=== PATIENT | female | born 1965 | race African-American/Black ===

== ENCOUNTER → 2017-09-17 | Outpatient (CLI) | payer BC ==
[2017-09-17 13:01] LABS: ADD MAN DIFF? NO
[2017-09-17 13:06] LABS: BASO # 0.1 x10^3/uL (0.0-0.2); BASO % 1 % (0-3); EOS # 0.1 x10^3/uL (0.0-0.7); EOS % 2 % (0-3); LYMPH # 1.7 x10^3/uL (1.0-4.8); LYMPH % 33 % (24-48); MEAN CORPUSCULAR HEMOGLOBIN 27 pg (25-35); MEAN CORPUSCULAR HGB CONC 33 g/dL (31-37); MEAN CORPUSCULAR VOLUME 81 fL (79-100); MONO # 0.3 x10^3/uL (0.0-1.1); MONO % 6 % (0-9); NEUT # 3.1 x10^3uL (1.8-7.7); NEUT % 58 % (31-73); PLATELET COUNT 345 x10^3/uL (140-400); RED BLOOD COUNT 4.84 x10^6/uL (3.50-5.40); RED CELL DISTRIBUTION WIDTH 13.8 % (11.5-14.5); WHITE BLOOD COUNT 5.3 x10^3/uL (4.0-11.0)
[2017-09-17 13:19] LABS: ALBUMIN 3.2 g/dL (3.4-5.0); ALBUMIN/GLOBULIN RATIO 0.8 (1.0-1.7); ALK PHOS 98 U/L (46-116); ALT (SGPT) 20 U/L (14-59); ANION GAP 10 (6-14); AST (SGOT) 29 U/L (15-37); BLOOD UREA NITROGEN 27 mg/dL (7-20); BUN/CREATININE RATIO 30 (6-20); CARBON DIOXIDE 27 mmol/L (21-32); CHLORIDE 103 mmol/L (98-107); CREATININE 0.9 mg/dL (0.6-1.0); GFR 80.5; GLUCOSE 188 mg/dL (70-99); POTASSIUM 3.7 mmol/L (3.5-5.1); SODIUM 140 mmol/L (136-145); TOTAL BILIRUBIN 0.4 mg/dL (0.2-1.0); TOTAL PROTEIN 7.4 g/dL (6.4-8.2)
[2017-09-17 21:10] LABS: MRSA BY PCR Negative (Negative)
[2017-09-18 14:17] LABS: HEMOGLOBIN A1C 6.2 % (4.8-5.6)
== END | disposition home or self-care (01) ==
LOC: SURGPAT 11:57
DX: Z01.818 Encounter for other preprocedural examination (principal); M51.16 Intervertebral disc disorders with radiculopathy, lumbar region; E11.9 Type 2 diabetes mellitus without complications
CPT/HCPCS: 36415; 80053; 83036; 85025; 87641

== ENCOUNTER 2017-09-24 08:30 | Observation (INO) | payer BC ==
[2017-09-24] MEDS: BUPIVAC MPF-EPI 0.5%-1:200000 30 ML VIAL. INJ (08:00)
[~2017-09-24 08:30] MED LIST: LIDOCAINE 1% PF 2 ML VIAL. ID; PROCHLORPERAZINE 10 MG/2 ML VIAL. IV; fentaNYL PF VIAL 100 MCG/2 ML VIAL IV
[2017-09-24 08:52] LABS: POC GLUCOSE 84 mg/dL (70-99)
[2017-09-24] MEDS: IV RINGERS,LACTATED 1000ML 1,000 ML IV (09:16)
[2017-09-24] MEDS ORDERED: MIDAZOLAM HCL/PF 2 MG/2 ML VIAL. (10:08)
[2017-09-24] MEDS ORDERED: REMIFENTANIL 2 MG VIAL. IV (10:09)
[2017-09-24] MEDS ORDERED: ROCURONIUM 50 MG/5 ML VIAL. (10:09)
[2017-09-24] MEDS ORDERED: fentaNYL PF VIAL 250 MCG/5 ML VIAL (10:09)
[2017-09-24] MEDS ORDERED: DESFLURANE > 120 MINUTES IH (10:10)
[2017-09-24] MEDS ORDERED: PROPOFOL 20 ML IV (10:10)
[2017-09-24] MEDS ORDERED: DEXAMETHASONE SOD PHOS 20 MG/5 ML VIAL. (10:10)
[2017-09-24] MEDS ORDERED: LIDOCAINE 2% PF Vial for OR 5 ML VIAL. (10:10)
[2017-09-24] MEDS ORDERED: PROPOFOL 50 ML IV (10:10)
[2017-09-24] MEDS ORDERED: ONDANSETRON PF 4 MG/2 ML VIAL. (10:10)
[2017-09-24] MEDS ORDERED: MINERAL OIL/PETROLATUM,WHITE OPHTH OINT 3.5GM TUBE. (10:16)
[2017-09-24] MEDS ORDERED: 0.9 % SODIUM CHLORIDE 50 ML VIAL. IJ (10:17)
[2017-09-24] MEDS: VANCOMYCIN 1GM IVPB FOR OMNI 250 ML IV ×2 (12:25→16:57)
[2017-09-24] MEDS: BACITRACIN 50,000 UNIT in IV NORMAL SALINE 1000ML BAG 1,000 ML IRR (12:57)
[2017-09-24] MEDS: GELATIN SPONGE SIZE 100. (12:57)
[2017-09-24] MEDS: KETOROLAC 60 MG/2 ML INJ FOR OR. (12:57)
[2017-09-24] MEDS: THROMBIN TOPICAL 20,000 UNIT SPRAY.SYRN KIT TP (12:57)
[2017-09-24] MEDS: BUPIVAC MPF-EPI 0.5%-1:200000 30 ML VIAL. (12:57)
[2017-09-24] MEDS ORDERED: PHENYLEPHRINE 10 MG/ML VIAL. ×2 (13:02)
[2017-09-24] MEDS ORDERED: GLYCOPYRROLATE 1 MG/5 ML VIAL. (14:19)
[2017-09-24] MEDS ORDERED: NEOSTIGMINE 10 MG/10 ML VIAL. (14:19)
[2017-09-24] MEDS ORDERED: CALCIUM CARBONATE 500 MG TAB.CHEW PO (15:00)
[2017-09-24] MEDS ORDERED: 0.9 % SODIUM CHLORIDE 10 ML DISP.SYRIN. IV (15:00)
[2017-09-24] MEDS ORDERED: ACETAMINOPHEN 500 MG TABLET PO (15:00)
[2017-09-24] MEDS ORDERED: MAG HYDROX/ALUMINUM HYD/SIMETH 30 ML ORAL.SUSP PO (15:00)
[2017-09-24] MEDS ORDERED: NON FORMULARY ITEM (Albuterol Sulfate (Proair Hfa Inhaler) 1 PUFF) INH (15:00)
[2017-09-24] MEDS ORDERED: fentaNYL PF VIAL 100 MCG/2 ML VIAL IV (15:00)
[2017-09-24] MEDS ORDERED: diphenhydrAMINE 50 MG/ML VIAL IV (15:00)
[2017-09-24] MEDS ORDERED: diphenhydrAMINE HCL 25 MG CAPSULE PO (15:00)
[2017-09-24] MEDS ORDERED: MAGNESIUM HYDROXIDE 2,400 MG/30 ML ORAL.SUSP. PO (15:00)
[2017-09-24] MEDS ORDERED: ONDANSETRON PF 4 MG/2 ML VIAL. IV (15:00)
[2017-09-24] MEDS: fentaNYL PF VIAL 100 MCG/2 ML VIAL IV ×5 (15:04→16:51)
[2017-09-24 16:05] LABS: POC GLUCOSE 82 mg/dL (70-99)
[2017-09-24] MEDS: POTASSIUM CL 20MEQ-0.45% NACL 1,000 ML IV (16:50)
[2017-09-24] MEDS: ONDANSETRON PF 4 MG/2 ML VIAL. IV (16:56)
[2017-09-24] MEDS: ALBUTEROL SULFATE 2.5 MG/3 ML NEBU. NEB (19:11)
[2017-09-24 20:38] LABS: POC GLUCOSE 166 mg/dL (70-99)
[2017-09-24] MEDS: TRIAMCINOLONE ACETONIDE 0.1% TOPICAL CREAM 15GM TUBE. TP (21:02)
[2017-09-24] MEDS: metFORMIN 500 MG TABLET PO (21:02)
[2017-09-24] MEDS: DOCUSATE SODIUM 100 MG CAPSULE. PO (21:02)
[2017-09-24] MEDS: METHOCARBAMOL 750 MG TABLET PO (21:02)
[2017-09-24] MEDS: traMADol 50 MG TABLET PO (22:41)
[2017-09-25] MEDS: fentaNYL PF VIAL 100 MCG/2 ML VIAL IV ×2 (02:21)
[2017-09-25] MEDS: POTASSIUM CL 20MEQ-0.45% NACL 1,000 ML IV (05:20)
[2017-09-25 06:24] LABS: POC GLUCOSE 112 mg/dL (70-99)
[2017-09-25] MEDS: DOCUSATE SODIUM 100 MG CAPSULE. PO (07:41)
[2017-09-25] MEDS: metFORMIN 500 MG TABLET PO (07:41)
[2017-09-25] MEDS: traMADol 50 MG TABLET PO ×2 (07:41→11:48)
[2017-09-25] MEDS: CHOLECALCIFEROL (VITAMIN D3) 1,000 UNIT TABLET PO (07:41)
[2017-09-25] MEDS: METHOCARBAMOL 750 MG TABLET PO (07:41)
[2017-09-25] MEDS: ACETAMINOPHEN 325 MG TABLET. PO ×2 (07:42→11:49)
[2017-09-25] MEDS: MELOXICAM 7.5 MG TABLET PO (07:42)
[2017-09-25] MEDS: LISINOPRIL 10 MG TABLET PO (09:00)
[2017-09-25] MEDS: TRIAMCINOLONE ACETONIDE 0.1% TOPICAL CREAM 15GM TUBE. TP (09:00)
[2017-09-25] MEDS ORDERED: traMADol 50 MG TABLET PO (10:15)
== END 2017-09-25 12:15 | disposition home or self-care (01) ==
LOC: SURG 08:30 → 4 SOUTHEST 15:30
PROVIDERS: Neurological Surgery
DX: M51.26 Other intervertebral disc displacement, lumbar region (principal); M54.17 Radiculopathy, lumbosacral region; M19.90 Unspecified osteoarthritis, unspecified site; J45.909 Unspecified asthma, uncomplicated; I10 Essential (primary) hypertension; E11.9 Type 2 diabetes mellitus without complications; G47.30 Sleep apnea, unspecified; Z82.0 Family history of epilepsy and other diseases of the nervous system; Z82.49 Family history of ischemic heart disease and other diseases of the circulatory system; Z83.3 Family history of diabetes mellitus; Z90.710 Acquired absence of both cervix and uterus
CPT/HCPCS: 63047; 76000; 82962; 88304; 93005; 94640; 96374; 96375; 96376; 97116-GP; 97162-GP; 97530-GP; G0378; G0379; G8978-CI-GP; G8979-CI-GP; G8980-CI-GP; J1100; J1885; J2250; J2405; J2704; J2710; J3010; J3370; J3490; J7030; J7120; J7613

== ENCOUNTER 2017-10-09 06:29 | Inpatient (IN) | payer BC ==
[2017-10-09 07:15] LABS: ADD MAN DIFF? NO
[2017-10-09 07:29] LABS: ANION GAP 9 (6-14); BLOOD UREA NITROGEN 18 mg/dL (7-20); CALCIUM 8.7 mg/dL (8.5-10.1); CARBON DIOXIDE 25 mmol/L (21-32); CHLORIDE 107 mmol/L (98-107); CREATININE 0.7 mg/dL (0.6-1.0); GFR 107.6; GLUCOSE 108 mg/dL (70-99); POTASSIUM 4.8 mmol/L (3.5-5.1); SODIUM 141 mmol/L (136-145)
[2017-10-09 07:41] LABS: TROPONINI < 0.017 ng/mL (0.000-0.055)
[2017-10-09 07:47] LABS: BASO % 1 % (0-3); EOS # 0.1 x10^3/uL (0.0-0.7); EOS % 3 % (0-3); HEMATOCRIT 40.3 % (36.0-47.0); HEMOGLOBIN 12.8 g/dL (12.0-15.5); LYMPH # 1.5 x10^3/uL (1.0-4.8); LYMPH % 31 % (24-48); MEAN CORPUSCULAR HEMOGLOBIN 26 pg (25-35); MEAN CORPUSCULAR HGB CONC 32 g/dL (31-37); MEAN CORPUSCULAR VOLUME 81 fL (79-100); MONO # 0.4 x10^3/uL (0.0-1.1); MONO % 8 % (0-9); NEUT # 2.7 x10^3uL (1.8-7.7); NEUT % 57 % (31-73); PLATELET COUNT 272 x10^3/uL (140-400); RED BLOOD COUNT 4.97 x10^6/uL (3.50-5.40); WHITE BLOOD COUNT 4.8 x10^3/uL (4.0-11.0)
[2017-10-09] MEDS: ASPIRIN CHEWABLE 81 MG TABLET. PO (07:58)
[2017-10-09] MEDS ORDERED: ONDANSETRON PF 4 MG/2 ML VIAL. IV (08:00)
[2017-10-09] MEDS ORDERED: NITROGLYCERIN SUBLINGUAL 0.4 MG BOTTLE OF 25. SL (08:00)
[2017-10-09] MEDS ORDERED: fentaNYL PF VIAL 100 MCG/2 ML VIAL IV (08:00)
[2017-10-09] MEDS: NITROGLYCERIN SUBLINGUAL 0.4 MG BOTTLE OF 25. SL ×3 (08:01→08:31)
[2017-10-09] MEDS: LISINOPRIL 10 MG TABLET PO (10:17)
[2017-10-09] MEDS: CHOLECALCIFEROL (VITAMIN D3) 1,000 UNIT TABLET PO (10:17)
[2017-10-09 10:55] LABS: CHOLESTEROL 262 mg/dL (0-200); HDLC 70 mg/dL (40-60); LDLC 175 mg/dL (0-100); NON-HDL CHOLESTEROL 192 mg/dL (0-129); TRIGLYCERIDES 87 mg/dL (0-150); VLDLC 17 mg/dL (0-40)
[2017-10-09 10:57] LABS: CHOLESTEROL/HDL RATIO 3.7
[2017-10-09 11:15] LABS: TROPONINI < 0.017 ng/mL (0.000-0.055)
[2017-10-09 11:36] LABS: POC GLUCOSE 83 mg/dL (70-99)
[2017-10-09] MEDS: ASPIRIN ENTERIC COATED 81 MG TABLET.DR. PO (12:02)
[2017-10-09 14:14] LABS: TROPONINI < 0.017 ng/mL (0.000-0.055)
[2017-10-09] MEDS: REGADENOSON 0.4 MG/5 ML DISP.SYRIN. IV (14:32)
[2017-10-09 16:44] LABS: POC GLUCOSE 169 mg/dL (70-99)
[2017-10-09] MEDS ORDERED: metFORMIN 500 MG TABLET PO (17:00)
[2017-10-09] MEDS: METHOCARBAMOL 750 MG TABLET PO ×2 (17:27→21:00)
[2017-10-09] MEDS: ACETAMINOPHEN 500 MG TABLET PO (18:40)
[2017-10-09] MEDS: ATORVASTATIN CALCIUM 40 MG TABLET. PO (21:00)
[2017-10-09] MEDS ORDERED: ATORVASTATIN CALCIUM 20 MG TABLET PO (21:00)
[2017-10-10 07:48] LABS: POC GLUCOSE 103 mg/dL (70-99)
[2017-10-10] MEDS: PANTOPRAZOLE 40 MG TABLET.DR. PO (08:45)
[2017-10-10] MEDS: POLYETHYLENE GLYCOL 3350 17 GM PACKET. PO (08:46)
[2017-10-10] MEDS: ESTRADIOL 1 MG TABLET. PO (08:46)
[2017-10-10] MEDS: ASPIRIN ENTERIC COATED 81 MG TABLET.DR. PO (08:46)
[2017-10-10] MEDS: LISINOPRIL 20 MG TABLET PO (08:47)
[2017-10-10] MEDS: METHOCARBAMOL 750 MG TABLET PO (08:48)
[2017-10-10] MEDS: CHOLECALCIFEROL (VITAMIN D3) 1,000 UNIT TABLET PO (08:48)
[2017-10-10] MEDS ORDERED: MELOXICAM 7.5 MG TABLET PO (09:00)
[2017-10-10] MEDS: MELOXICAM 7.5 MG TABLET PO (11:00)
[2017-10-10 11:06] LABS: POC GLUCOSE 119 mg/dL (70-99)
== END 2017-10-10 11:54 | disposition home or self-care (01) | DRG 74 ==
LOC: ER 06:29 → 5 NORTH 08:02
DX: M54.12 Radiculopathy, cervical region (principal); K31.84 Gastroparesis; E11.43 Type 2 diabetes mellitus with diabetic autonomic (poly)neuropathy; R07.89 Other chest pain; J45.909 Unspecified asthma, uncomplicated; E78.5 Hyperlipidemia, unspecified; I10 Essential (primary) hypertension; M19.90 Unspecified osteoarthritis, unspecified site; K21.9 Gastro-esophageal reflux disease without esophagitis; G89.29 Other chronic pain; Z88.5 Allergy status to narcotic agent; Z98.1 Arthrodesis status; Z88.0 Allergy status to penicillin; Z88.6 Allergy status to analgesic agent; Z91.041 Radiographic dye allergy status; Z90.710 Acquired absence of both cervix and uterus; Z82.49 Family history of ischemic heart disease and other diseases of the circulatory system
CPT/HCPCS: 36415; 71045; 72125; 73030; 78452; 80048; 80061; 82962; 84484; 85025; 93005; 93017; 93306; 96374; 96375; 96376; 99285; 99285-25; A9500; J2785

== ENCOUNTER → 2017-10-15 | Outpatient (CLI) | payer BC ==
[~2017-10-15] MED LIST changes: +IOHEXOL 180 MG/ML 10 ML VIAL.; -LIDOCAINE 1% PF 2 ML VIAL. ID; -PROCHLORPERAZINE 10 MG/2 ML VIAL. IV; -fentaNYL PF VIAL 100 MCG/2 ML VIAL IV; +methylPREDNISolone ACETATE 40 MG/ML VIAL.
== END ==
LOC: PNCL 13:03
DX: M50.10 Cervical disc disorder with radiculopathy, unspecified cervical region (principal); E11.9 Type 2 diabetes mellitus without complications; I10 Essential (primary) hypertension; G47.30 Sleep apnea, unspecified; M19.90 Unspecified osteoarthritis, unspecified site; Z90.710 Acquired absence of both cervix and uterus; Z88.0 Allergy status to penicillin; Z88.5 Allergy status to narcotic agent; Z88.8 Allergy status to other drugs, medicaments and biological substances; G40.909 Epilepsy, unspecified, not intractable, without status epilepticus; E66.9 Obesity, unspecified; K21.9 Gastro-esophageal reflux disease without esophagitis; D25.9 Leiomyoma of uterus, unspecified; Z90.721 Acquired absence of ovaries, unilateral; F32.9 Major depressive disorder, single episode, unspecified; Z79.84 Long term (current) use of oral hypoglycemic drugs
CPT/HCPCS: 62321; J1030; Q9965

== ENCOUNTER → 2017-10-24 | Outpatient (CLI) | payer BC | END | disposition home or self-care (01) | LOC: KCIC MRI 12:44 | DX: M50.122 Cervical disc disorder at C5-C6 level with radiculopathy (principal); M48.02 Spinal stenosis, cervical region | CPT/HCPCS: 72141 ==

== ENCOUNTER → 2017-11-05 | Outpatient (CLI) | payer BC ==
[2017-11-05 14:41] LABS: ADD MAN DIFF? NO
[2017-11-05 14:43] LABS: BASO % 1 % (0-3); EOS # 0.1 x10^3/uL (0.0-0.7); EOS % 2 % (0-3); HEMATOCRIT 41.2 % (36.0-47.0); HEMOGLOBIN 13.2 g/dL (12.0-15.5); LYMPH # 1.9 x10^3/uL (1.0-4.8); LYMPH % 52 % (24-48); MEAN CORPUSCULAR HEMOGLOBIN 26 pg (25-35); MEAN CORPUSCULAR HGB CONC 32 g/dL (31-37); MEAN CORPUSCULAR VOLUME 82 fL (79-100); MONO # 0.3 x10^3/uL (0.0-1.1); MONO % 10 % (0-9); NEUT # 1.3 x10^3uL (1.8-7.7); NEUT % 36 % (31-73); PLATELET COUNT 287 x10^3/uL (140-400); RED BLOOD COUNT 5.06 x10^6/uL (3.50-5.40); RED CELL DISTRIBUTION WIDTH 14.4 % (11.5-14.5); WHITE BLOOD COUNT 3.6 x10^3/uL (4.0-11.0)
[2017-11-05 15:28] LABS: ALBUMIN 3.1 g/dL (3.4-5.0); ALBUMIN/GLOBULIN RATIO 0.8 (1.0-1.7); ALK PHOS 87 U/L (46-116); ALT (SGPT) 27 U/L (14-59); ANION GAP 10 (6-14); AST (SGOT) 20 U/L (15-37); BLOOD UREA NITROGEN 18 mg/dL (7-20); BUN/CREATININE RATIO 20 (6-20); CALCIUM 8.4 mg/dL (8.5-10.1); CARBON DIOXIDE 25 mmol/L (21-32); CHLORIDE 104 mmol/L (98-107); CREATININE 0.9 mg/dL (0.6-1.0); GFR 80.5; GLUCOSE 99 mg/dL (70-99); POTASSIUM 4.6 mmol/L (3.5-5.1); SODIUM 139 mmol/L (136-145); TOTAL BILIRUBIN 0.3 mg/dL (0.2-1.0); TOTAL PROTEIN 7.1 g/dL (6.4-8.2)
[2017-11-06 22:17] LABS: MRSA BY PCR Negative (Negative)
== END | disposition home or self-care (01) ==
LOC: SURGPAT 13:22
DX: Z01.818 Encounter for other preprocedural examination (principal); M50.123 Cervical disc disorder at C6-C7 level with radiculopathy
CPT/HCPCS: 36415; 80053; 85025; 87641

== ENCOUNTER 2017-11-12 06:57 | Observation (INO) | payer BC ==
[2017-11-12] MEDS ORDERED: ONDANSETRON PF 4 MG/2 ML VIAL. IV ×2 (07:00→10:45)
[2017-11-12] MEDS ORDERED: fentaNYL PF VIAL 100 MCG/2 ML VIAL IV ×4 (07:00→10:45)
[2017-11-12] MEDS ORDERED: LIDOCAINE 1% PF 2 ML VIAL. ID (07:00)
[2017-11-12 07:34] LABS: POC GLUCOSE 91 mg/dL (70-99)
[2017-11-12] MEDS: IV RINGERS,LACTATED 1000ML 1,000 ML IV (07:34)
[2017-11-12] MEDS ORDERED: MIDAZOLAM HCL/PF 2 MG/2 ML VIAL. (08:01)
[2017-11-12] MEDS ORDERED: PROPOFOL 50 ML IV ×2 (08:01→09:36)
[2017-11-12] MEDS ORDERED: DEXAMETHASONE SOD PHOS 20 MG/5 ML VIAL. (08:01)
[2017-11-12] MEDS ORDERED: REMIFENTANIL 2 MG VIAL. IV (08:01)
[2017-11-12] MEDS ORDERED: LIDOCAINE 2% PF Vial for OR 5 ML VIAL. (08:01)
[2017-11-12] MEDS ORDERED: ONDANSETRON PF 4 MG/2 ML VIAL. (08:01)
[2017-11-12] MEDS ORDERED: ROCURONIUM 50 MG/5 ML VIAL. (08:01)
[2017-11-12] MEDS ORDERED: MINERAL OIL/PETROLATUM,WHITE OPHTH OINT 3.5GM TUBE. (08:01)
[2017-11-12] MEDS ORDERED: PROPOFOL 20 ML IV (08:01)
[2017-11-12] MEDS ORDERED: PHENYLEPHRINE 10 MG/ML VIAL. (08:02)
[2017-11-12] MEDS ORDERED: DESFLURANE > 120 MINUTES IH (08:31)
[2017-11-12] MEDS ORDERED: SUCCINYLCHOLINE 200 MG/10 ML VIAL. (08:34)
[2017-11-12] MEDS: VANCOMYCIN 1GM IVPB FOR OMNI 250 ML IV (08:53)
[2017-11-12] MEDS ORDERED: GLYCOPYRROLATE 1 MG/5 ML VIAL. (09:21)
[2017-11-12] MEDS ORDERED: ePHEDrine PF IN SALINE 50 MG/5 ML DISP.SYRIN IV (09:26)
[2017-11-12] MEDS ORDERED: VASOPRESSIN 20 UNIT/ML VIAL. (09:30)
[2017-11-12] MEDS: BACITRACIN 50,000 UNIT in IV NORMAL SALINE 1000ML BAG 1,000 ML IRR (09:43)
[2017-11-12] MEDS: GELATIN SPONGE SIZE 100. (09:43)
[2017-11-12] MEDS: THROMBIN TOPICAL 20,000 UNIT SPRAY.SYRN KIT TP (09:43)
[2017-11-12] MEDS: BUPIVAC MPF-EPI 0.5%-1:200000 30 ML VIAL. INJ (09:43)
[2017-11-12] MEDS ORDERED: MAG HYDROX/ALUMINUM HYD/SIMETH 30 ML ORAL.SUSP PO (10:45)
[2017-11-12] MEDS ORDERED: CALCIUM CARBONATE 500 MG TAB.CHEW PO (10:45)
[2017-11-12] MEDS ORDERED: 0.9 % SODIUM CHLORIDE 10 ML DISP.SYRIN. IV (10:45)
[2017-11-12] MEDS ORDERED: diphenhydrAMINE 50 MG/ML VIAL IV (10:45)
[2017-11-12] MEDS ORDERED: ACETAMINOPHEN 325 MG TABLET. PO (10:45)
[2017-11-12] MEDS ORDERED: ZOLPIDEM 5 MG TABLET. PO (10:45)
[2017-11-12] MEDS ORDERED: diphenhydrAMINE HCL 25 MG CAPSULE PO (10:45)
[2017-11-12] MEDS ORDERED: DEXTROSE 50% 25 GM / 50ML DISP.SYRIN. IV (10:45)
[2017-11-12] MEDS ORDERED: MORPHINE SULFATE 4 MG/ML DISP.SYRIN. ×2 (11:42→12:36)
[2017-11-12] MEDS ORDERED: PROCHLORPERAZINE 10 MG/2 ML VIAL. (11:42)
[2017-11-12] MEDS: PROCHLORPERAZINE 10 MG/2 ML VIAL. IV (12:19)
[2017-11-12] MEDS: MORPHINE SULFATE 4 MG/ML DISP.SYRIN. IV ×5 (12:20→13:11)
[2017-11-12 12:38] LABS: POC GLUCOSE 106 mg/dL (70-99)
[2017-11-12] MEDS: DOCUSATE SODIUM 100 MG CAPSULE. PO ×2 (14:57→21:21)
[2017-11-12] MEDS: oxyCODONE/APAP 5/325 1 TAB TABLET PO ×2 (14:57→18:30)
[2017-11-12] MEDS: METHOCARBAMOL 750 MG TABLET PO ×2 (14:57→21:21)
[2017-11-12] MEDS: POTASSIUM CL 20MEQ-0.45% NACL 1,000 ML IV ×2 (14:58→23:54)
[2017-11-12] MEDS: BUDESONIDE 0.5 MG/2 ML NEBU. NEB ×2 (16:34→21:06)
[2017-11-12] MEDS ORDERED: MORPHINE SULFATE 4 MG/ML DISP.SYRIN. IV ×2 (17:30)
[2017-11-12 17:35] LABS: POC GLUCOSE 151 mg/dL (70-99)
[2017-11-12] MEDS: VANCOMYCIN 1 GM in IV DEXTROSE 5% 250 ML IV (21:21)
[2017-11-12] MEDS: ATORVASTATIN CALCIUM 40 MG TABLET. PO (21:21)
[2017-11-13] MEDS: oxyCODONE/APAP 5/325 1 TAB TABLET PO ×2 (02:08→09:04)
[2017-11-13] MEDS: ALBUTEROL SULFATE 2.5 MG/3 ML NEBU. NEB (07:49)
[2017-11-13] MEDS: BUDESONIDE 0.5 MG/2 ML NEBU. NEB (07:49)
[2017-11-13] MEDS: metFORMIN 500 MG TABLET PO (09:04)
[2017-11-13] MEDS: DOCUSATE SODIUM 100 MG CAPSULE. PO (09:04)
[2017-11-13] MEDS: LISINOPRIL 20 MG TABLET PO (09:05)
[2017-11-13] MEDS: ESTRADIOL 1 MG TABLET. PO (09:05)
[2017-11-13] MEDS: METHOCARBAMOL 750 MG TABLET PO (09:07)
== END 2017-11-13 13:45 | disposition home or self-care (01) ==
LOC: SURG 06:57 → 4 NORTH 10:34
PROVIDERS: Neurological Surgery
DX: M48.02 Spinal stenosis, cervical region (principal); M54.12 Radiculopathy, cervical region; M19.90 Unspecified osteoarthritis, unspecified site; J45.909 Unspecified asthma, uncomplicated; G43.909 Migraine, unspecified, not intractable, without status migrainosus; I10 Essential (primary) hypertension; E11.9 Type 2 diabetes mellitus without complications; Z82.0 Family history of epilepsy and other diseases of the nervous system; Z82.49 Family history of ischemic heart disease and other diseases of the circulatory system; Z83.3 Family history of diabetes mellitus
CPT/HCPCS: 20931; 76000; 82962; 94640; 96365; 97161-GP; A7015; C1713; G0378; G0379; G8978-CH-GP; G8979-CH-GP; G8980-CH-GP; J0330; J0780; J1100; J2250; J2270; J2405; J2704; J3370; J3490; J7030; J7120; J7613; J7626

== ENCOUNTER → 2018-02-01 | Day surgery (SDC) | payer OTHER, BC ==
[~2018-02-01] MED LIST changes: -IOHEXOL 180 MG/ML 10 ML VIAL.; +LIDOCAINE 2% PF Vial for OR 5 ML VIAL.; +PROPOFOL 20 ML IV; -methylPREDNISolone ACETATE 40 MG/ML VIAL.
[2018-02-01] MEDS: IV RINGERS,LACTATED 1000ML 1,000 ML IV (09:56)
== END ==
LOC: ENDOS 08:55
DX: R19.4 Change in bowel habit (principal); K57.30 Diverticulosis of large intestine without perforation or abscess without bleeding; K64.0 First degree hemorrhoids; I10 Essential (primary) hypertension; E78.00 Pure hypercholesterolemia, unspecified; E11.9 Type 2 diabetes mellitus without complications; J45.909 Unspecified asthma, uncomplicated; M19.90 Unspecified osteoarthritis, unspecified site; F32.9 Major depressive disorder, single episode, unspecified; K21.9 Gastro-esophageal reflux disease without esophagitis; M54.12 Radiculopathy, cervical region; M48.02 Spinal stenosis, cervical region; Z88.0 Allergy status to penicillin; Z88.8 Allergy status to other drugs, medicaments and biological substances; Z83.3 Family history of diabetes mellitus; Z82.49 Family history of ischemic heart disease and other diseases of the circulatory system; Z79.899 Other long term (current) drug therapy; Z98.890 Other specified postprocedural states; Z90.710 Acquired absence of both cervix and uterus; Z90.722 Acquired absence of ovaries, bilateral
CPT/HCPCS: 45378; J2001; J2704

== ENCOUNTER 2018-04-19 14:10 | Emergency (ER) | payer OTHER ==
[~2018-04-19] VITALS: Ht 152.4 cm; Wt 97.5 kg
[~2018-04-19 14:10] MED LIST changes: +ACET325T9 PO; +ATOR40TA59 PO; +CHOL10003 PO; +DOCU-109 PO; +ESTR0.5T PO; +ESTR1PAT27 TD; -LIDOCAINE 2% PF Vial for OR 5 ML VIAL.; +LISI-130 PO; +LISI10TA2 PO; +MELO15TA23 PO; +METF500T16 PO; +METH-38 PO; +MOME220A5 IH; +OXYC-323 PO; +PROAIR HFA8.5 GM INH; -PROPOFOL 20 ML IV; +TRAM50TA PO; +TRIA80OI TP
[2018-04-19 14:55] VITALS: BP 149/91
--- NOTE | 2018-04-19 15:37 | PHYS DOC ---
Past Medical History Past Medical History: Asthma, Diabetes-Type II, Hypertension Past Surgical History: Hysterectomy, Other Additional Past Surgical Histo: spinal fusion L5, C3-C5 CERVICAL FUSION Alcohol Use: None Drug Use: None Adult General Chief Complaint Chief Complaint: BACK PAIN OR INJURY HPI HPI Patient is a 52 year old female who presents with hx of HTN, DMII, who presents today complaining of 10 out of 10 bilateral low back pain radiating to bilateral lower extremities that is chronic in nature but got worse today while she was sitting in her couch. Patient is also complaining of numbness and tingling to her toes. She states this is not new. She states usually follows up with Dr. Aparicio the neurosurgeon, she states she has oxycodone at home for pain but she is not taking it because she does not like how it makes her feel. Patient denies any trauma. Denies any loss of bowel bladder function. Denies any weakness. Review of Systems Review of Systems Constitutional: Denies fever or chills [] GI: Denies abdominal pain, nausea, vomiting, bloody stools or diarrhea [] : Denies dysuria or hematuria [] Musculoskeletal: Reports bilateral low back pain radiating to bilateral lower extremities. Integument: Denies rash or skin lesions [] Neurologic: Denies headache, focal weakness or sensory changes [] [] All other systems were reviewed and found to be within normal limits, except as documented in this note. Current Medications Current Medications Current Medications Medications (Trade) Dose Ordered Sig/Mayuri Start Time Stop Time Status Last Admin Dose Admin Dexamethasone Sodium Phosphate (Decadron) 10 mg 1X ONCE 04/19/18 15:45 04/19/18 15:46 UNV Allergies Allergies Allergies Coded Allergies Type Severity Reaction Last Updated Verified iodine Allergy Intermediate Swelling, Shell Fish 02/01/18 Yes Penicillins Adverse Reaction Intermediate Vomiting 11/12/17 Yes codeine Adverse Reaction Intermediate vomit 11/13/17 Yes fentanyl Adverse Reaction Intermediate patient get dizzy and nautious 11/12/17 Yes terbinafine Adverse Reaction Intermediate vomit 11/13/17 Yes tramadol Adverse Reaction Intermediate Nausea and Vomiting 11/12/17 Yes Physical Exam Physical Exam Constitutional: Well developed, well nourished, no acute distress, non-toxic appearance. [] Abdomen: Bowel sounds normal, soft, no tenderness, no masses, no pulsatile masses. [] Skin: Warm, dry, no erythema, no rash. [] Back: Old healed surgical incision noted midline lumbar spine, diffuse paraspinal muscle tenderness to the lumbar spine, no obvious Lumbar spine tenderness, no CVA tenderness. [] Extremities: No tenderness, no cyanosis, no clubbing, ROM intact, no edema. [] Neurologic: Alert and oriented X 3, normal motor function, normal sensory function, no focal deficits noted. [] Psychologic: Affect normal, judgement normal, mood normal. [] Current Patient Data Vital Signs Vital Signs Date Time Temp Pulse Resp B/P (MAP) Pulse Ox O2 Delivery O2 Flow Rate FiO2 04/19/18 14:55 98.6 86 18 149/91 (110) 98 Room Air 98.6 EKG EKG [] Radiology/Procedures Radiology/Procedures [] Course & Med Decision Making Course & Med Decision Making Pertinent Labs and Imaging studies reviewed. (See chart for details) This is a 52-year-old female patient with known history of chronic back pain presenting to the ED today with chronic back pain with sciatica. There is nothing acute about her symptoms today no cauda equina syndrome symptoms. Patient is in no distress. Patient was offered pain relief in the ED, patient states she does not want anything that will make her sleepy or drowsy. Offered her Toradol, she states she is allergic to tramadol. Offered her Solu-Medrol which she accepted. She has oxycodone at home and methocarbamol. Instructed to take them as needed for pain. She has an appointment with Dr. Aparicio's on May 14 2018. She was provided return precautions and discharged in stable condition. Dragon Disclaimer Dragon Disclaimer This electronic medical record was generated, in whole or in part, using a voice recognition dictation system. Departure Departure Impression: Primary Impression: Chronic low back pain Disposition: HOME, SELF-CARE Condition: STABLE Referrals: TATIANNA KEE MD (PCP) GISELLA APARICIO MD follow up in 1 week Patient Instructions: Back Pain, Adult, [id number] Additional Instructions: You were evaluated in the emergency room for exacerbation of chronic low back pain. Continue taking your pain medicine at home as previously ordered. Try to ice the affected area. Follow-up with the primary care doctor as well as neurosurgeon on May 14, 2018 as scheduled. Come back to the ED at any point symptoms worsen. Problem Qualifiers Primary Impression: Chronic low back pain Back pain laterality: bilateral Sciatica presence: without sciatica Qualified Codes: M54.5 - Low back pain; G89.29 - Other chronic pain GELACIO MARSH APRN Apr 19, 2018 15:37
[2018-04-19] MEDS ORDERED: DEXAMETHASONE SOD PHOS 20 MG/5 ML VIAL. IM ONE (15:45)
== END 2018-04-19 16:39 | disposition home or self-care (01) ==
LOC: ER 14:10
DX: G89.29 Other chronic pain (principal); M54.5 Low back pain; R20.0 Anesthesia of skin; J45.909 Unspecified asthma, uncomplicated; I10 Essential (primary) hypertension; E11.9 Type 2 diabetes mellitus without complications; Z90.710 Acquired absence of both cervix and uterus; Z98.1 Arthrodesis status; Z88.5 Allergy status to narcotic agent; Z88.0 Allergy status to penicillin; Z88.8 Allergy status to other drugs, medicaments and biological substances; Z88.4 Allergy status to anesthetic agent; Z91.041 Radiographic dye allergy status
CPT/HCPCS: 96372; 99283; J1100

== ENCOUNTER 2020-08-17 14:00 | Emergency (ER) | payer OTHER ==
[~2020-08-17] VITALS: Ht 152.4 cm; Wt 107.0 kg
[~2020-08-17 14:00] MED LIST changes: +ALBU2.5V8 INH; -OXYC-323 PO; +OXYC1TAB15 PO; -PROAIR HFA8.5 GM INH
--- NOTE | 2020-08-17 14:47 | ED.ADGEN ---
Past Medical History Past Medical History: Arthritis, Asthma, Depression, Diabetes-Type II, High Cholesterol, Hypertension, Other Additional Past Medical Histor: PTSD, SHON, DDD, fibromyalgia Past Surgical History: , Hysterectomy, Other Additional Past Surgical Histo: spinal fusion L5, C3-C5 CERVICAL FUSION, bilat carpel tunnel release Smoking Status: Never Smoker Alcohol Use: None Drug Use: None General Adult EDM: Chief Complaint: LOWER EXT PAIN HPI: HPI: Patient is a 54 year old AA female who presents emergency department with complaints of swelling and pain to her right lower leg, and intermittent chest pain and shortness of breath for the last 2 weeks. Patient denies any known injury to her leg. She denies any recent travel or flights. Patient states that she saw her primary care doctor 2 weeks ago but he did not address her cynthia padilla. She currently denies any abdominal pain, nausea, vomiting, diarrhea, cough, sore throat, headache, or dizziness. She complains that her right lower leg feels hot to touch and appears red in color. She denies any drainage or bleeding from the site. She describes the pain as a burning sensation she currently rates the pain a 10 out of 10 on the pain scale. She denies any alleviating factors, pain is worse with palpation and movement. Review of Systems: Review of Systems: Complete ROS is negative unless otherwise noted in HPI. Allergies: Allergies: Allergies Coded Allergies Type Severity Reaction Last Updated Verified shellfish derived Allergy Severe anaphylaxis 08/17/20 Yes iodine Allergy Intermediate Swelling, Shell Fish 08/17/20 Yes Penicillins Adverse Reaction Severe swelling 08/17/20 Yes codeine Adverse Reaction Intermediate vomit 08/17/20 Yes fentanyl Adverse Reaction Intermediate patient get dizzy and nautious 08/17/20 Yes terbinafine Adverse Reaction Intermediate vomit 08/17/20 Yes tramadol Adverse Reaction Intermediate Nausea and Vomiting 08/17/20 Yes Physical Exam: PE: See Above Constitutional: Well developed, well nourished, no acute distress, non-toxic appearance, obese [] HENT: Normocephalic, atraumatic, bilateral external ears normal, nose normal. [] Eyes: PERRLA, EOMI, conjunctiva normal, no discharge. [] Neck: Normal range of motion, no stridor. [] Cardiovascular:Heart rate regular rhythm Lungs & Thorax: Respirations even and unlabored, no retractions, no respiratory distress Abdomen: soft, no tenderness Skin: Warm, dry; erythema and warmth to anterior right lower extremity concerning for cellulitis Extremities: RLE: No cyanosis, ROM intact, 1+ edema, sensation intact, 2+ pedal pulse Neurologic: Alert and oriented X 3, no focal deficits noted. [] Psychologic: Affect normal, judgement normal, mood normal. [] Current Patient Data: Labs: Laboratory Tests Test 08/17/20 14:56 08/17/20 16:40 White Blood Count 5.6 x10^3/uL (4.0-11.0) Red Blood Count 4.52 x10^6/uL (3.50-5.40) Hemoglobin 11.3 g/dL (12.0-15.5) L Hematocrit 35.4 % (36.0-47.0) L Mean Corpuscular Volume 78 fL (79-100) L Mean Corpuscular Hemoglobin 25 pg (25-35) Mean Corpuscular Hemoglobin Concent 32 g/dL (31-37) Red Cell Distribution Width 15.9 % (11.5-14.5) H Platelet Count 329 x10^3/uL (140-400) Neutrophils (%) (Auto) 59 % (31-73) Lymphocytes (%) (Auto) 30 % (24-48) Monocytes (%) (Auto) 8 % (0-9) Eosinophils (%) (Auto) 2 % (0-3) Basophils (%) (Auto) 2 % (0-3) Neutrophils # (Auto) 3.3 x10^3/uL (1.8-7.7) Lymphocytes # (Auto) 1.7 x10^3/uL (1.0-4.8) Monocytes # (Auto) 0.4 x10^3/uL (0.0-1.1) Eosinophils # (Auto) 0.1 x10^3/uL (0.0-0.7) Basophils # (Auto) 0.1 x10^3/uL (0.0-0.2) D-Dimer (Darcie) 0.36 ug/mlFEU (0.00-0.50) Sodium Level 141 mmol/L (136-145) Potassium Level 4.3 mmol/L (3.5-5.1) Chloride Level 105 mmol/L (98-107) Carbon Dioxide Level 29 mmol/L (21-32) Anion Gap 7 (6-14) Blood Urea Nitrogen 10 mg/dL (7-20) Creatinine 1.0 mg/dL (0.6-1.0) Estimated GFR (Cockcroft-Gault) 70.5 BUN/Creatinine Ratio 10 (6-20) Glucose Level 89 mg/dL (70-99) Calcium Level 9.2 mg/dL (8.5-10.1) Magnesium Level 1.8 mg/dL (1.8-2.4) Total Bilirubin 0.3 mg/dL (0.2-1.0) Aspartate Amino Transferase (AST) 33 U/L (15-37) Alanine Aminotransferase (ALT) 38 U/L (14-59) Alkaline Phosphatase 116 U/L (46-116) Creatine Kinase 230 U/L (26-192) H Creatine Kinase MB (Mass) 1.4 ng/mL (0.0-3.6) Creatine Kinase MB Relative Index 0.6 % (0-4) Troponin I Quantitative < 0.017 ng/mL (0.000-0.055) DI-Fkk-Q-Type Natriuretic Peptide 59 pg/mL (0-124) Total Protein 7.2 g/dL (6.4-8.2) Albumin 3.2 g/dL (3.4-5.0) L Albumin/Globulin Ratio 0.8 (1.0-1.7) L Lipase 621 U/L (73-393) H Urine Collection Type Unknown Urine Color Yellow Urine Clarity Clear Urine pH 7.0 (<5.0-8.0) Urine Specific [place] 1.010 (1.000-1.030) Urine Protein Negative mg/dL (NEG-TRACE) Urine Glucose (UA) Negative mg/dL (NEG) Urine Ketones (Stick) Negative mg/dL (NEG) Urine Blood Negative (NEG) Urine Nitrite Negative (NEG) Urine Bilirubin Negative (NEG) Urine Urobilinogen Dipstick 0.2 mg/dL (0.2 mg/dL) Urine Leukocyte Esterase Trace (NEG) Urine RBC 0 /HPF (0-2) Urine WBC 1-4 /HPF (0-4) Urine Squamous Epithelial Cells Few /LPF Urine Bacteria Moderate /HPF (0-FEW) Laboratory Tests 08/17/20 14:56 Laboratory Tests 08/17/20 14:56 Vital Signs: Vital Signs Date Time Temp Pulse Resp B/P (MAP) Pulse Ox O2 Delivery O2 Flow Rate FiO2 08/17/20 14:15 98.2 112 20 205/99 (134) 98 Room Air 98.2 EKG: EK-sinus tachycardia rate 102 otherwise normal, no STEMI, read by Dr. Burgos [] Heart Score: HEART Score for Chest Pain: HEART Score for Chest Pain Response (Comments) Value History Slighlty/Non-Suspicious 0 ECG Normal 0 Age >45 - < 65 1 Risk Factors >3 Risk Factors or Hx CAD 2 Troponin < Normal Limit 0 Total 3 Risk Factors: Risk Factors: DM, Current or recent (<one month) smoker, HTN, HLP, family history of CAD, obesity. Risk Scores: Score 0 - 3: 2.5% MACE over next 6 weeks - Discharge Home Score 4 - 6: 20.3% MACE over next 6 weeks - Admit for Clinical Observation Score 7 - 10: 72.7% MACE over next 6 weeks - Early Invasive Strategies Radiology/Procedures: Radiology/Procedures: PROCEDURE: VENOUS LOWER EXTREMITY RIGHT Examination: Unilateral venous Doppler. Technique: Ultrasound evaluation of the right lower extremity was performed from the groin to the upper calf with thornton scale, spectral and color doppler evaluation. Indication: Leg swelling Comparison: None Findings: There is normal venous flow and compressibility of right common fe moral vein, femoral vein, popliteal vein, and visualized proximal calf veins. Impression: No evidence for deep vein thrombosis of right lower extremity from the level of the calf veins to the groins.[] PROCEDURE: CHEST AP ONLY XR CHEST 1V Clinical History: Reason: chest pain / Spl. Instructions: / History: Technique: AP view of the chest was obtained at 08/17/2020 3:12 PM. Comparison: October 09, 2012. Findings: The cardiomediastinal silhouette is normal. The pulmonary vasculature is normal. The lungs and pleural margins are clear. There is been interval anterior fusion of the lower C-spine. Impression: No evidence of an acute cardiopulmonary process. Course & Med Decision Making: Course & Med Decision Making Pertinent Labs and Imaging studies reviewed. (See chart for details) 54-year-old female presented to the emergency department with multiple complaints. EKG revealed no acute findings. Patient reported that her chest pain had been present for over 2 weeks. Her troponin was not elevated. CBC reveals a hemoglobin 11.3, hematocrit of 35.4 otherwise unremarkable; D- dimer is not elevated; CK is 230, patient's lipase is 621 otherwise CMP is unremarkable. Patient denies any nausea, vomiting, or abdominal pain. UA is unremarkable. Ultrasound of the right lower extremity revealed no acute findings, chest x-ray is also normal. Patient's vital signs were stable in the emergency department. A prescription was written for clindamycin. The patient was encouraged to follow-up with her primary care doctor for reevaluation in the next 1 to 2 days, return to the ER symptoms worsen or fever develop. Patient verbalized an understanding of home care, medications, follow-up, and return to ED instructions and was in agreement with the plan of care. [] Dragon Disclaimer: Dragon Disclaimer: This electronic medical record was generated, in whole or in part, using a voice recognition dictation system. Departure Departure Impression: Primary Impression: Cellulitis of leg without foot, right Disposition: 01 DC HOME SELF CARE/HOMELESS Condition: STABLE Referrals: LEXII ESTEVEZ MD (PCP) Patient Instructions: Cellulitis, [id number] Additional Instructions: Fill the prescription use as directed. You can take Tylenol or ibuprofen as needed for pain. Follow-up with your primary care doctor for recheck in the next 1 to 2 days, return to the ER if symptoms worsen or fever develops. Scripts Clindamycin Hcl (CLINDAMYCIN HCL) 150 Mg Capsule 300 MG PO QID for 7 Days, #56 CAP 0 Refills Prov: JOS GIPSON APRN 08/17/20 JOS GIPSON APRN Aug 17, 2020 14:47
--- NOTE | 2020-08-17 14:57 | RAD ---
Examination: Unilateral venous Doppler. Technique: Ultrasound evaluation of the right lower extremity was performed from the groin to the upp er calf with thornton scale, spectral and color doppler evaluation. Indication: Leg swelling Comparison: None Findings: There is normal venous flow and compressibility of right common femoral vein, femoral vein, popliteal vein, and visualized proximal calf veins. Impression: No evidence for deep vein thrombosis of right lower extremity from the level of the calf veins to the groins. Electronically signed by: James Skaggs MD (08/17/2020 2:54 PM) [facility]
[2020-08-17 15:11] LABS: BASO # 0.1 x10^3/uL (0.0-0.2); BASO % 2 % (0-3); EOS # 0.1 x10^3/uL (0.0-0.7); EOS % 2 % (0-3); HEMATOCRIT 35.4 % (36.0-47.0); HEMOGLOBIN 11.3 g/dL (12.0-15.5); LYMPH # 1.7 x10^3/uL (1.0-4.8); LYMPH % 30 % (24-48); MEAN CORPUSCULAR HEMOGLOBIN 25 pg (25-35); MEAN CORPUSCULAR HGB CONC 32 g/dL (31-37); MEAN CORPUSCULAR VOLUME 78 fL (79-100); MONO # 0.4 x10^3/uL (0.0-1.1); MONO % 8 % (0-9); NEUT # 3.3 x10^3/uL (1.8-7.7); NEUT % 59 % (31-73); PLATELET COUNT 329 x10^3/uL (140-400); RED BLOOD COUNT 4.52 x10^6/uL (3.50-5.40); RED CELL DISTRIBUTION WIDTH 15.9 % (11.5-14.5); WHITE BLOOD COUNT 5.6 x10^3/uL (4.0-11.0)
--- NOTE | 2020-08-17 15:26 | RAD ---
XR CHEST 1V Clinical History: Reason: chest pain / Spl. Instructions: / History: Technique: AP view of the chest was obtained at 08/17/2020 3:12 PM. Comparison: October 09, 2012. Findings: The cardiomediastinal silhouette is normal. The pulmonary vasculature is normal. The lungs and pleura l margins are clear. There is been interval anterior fusion of the lower C-spine. Impression: No evidence of an acute cardiopulmonary process. Electronically signed by: Vic Bartlett III, MD (08/17/2020 3:23 PM) [facility]
[2020-08-17 15:28] LABS: CALCIUM 9.2 mg/dL (8.5-10.1); GFR 70.5; POTASSIUM 4.3 mmol/L (3.5-5.1)
[2020-08-17 15:35] LABS: ALBUMIN 3.2 g/dL (3.4-5.0); ALBUMIN/GLOBULIN RATIO 0.8 (1.0-1.7); MAGNESIUM 1.8 mg/dL (1.8-2.4); TOTAL BILIRUBIN 0.3 mg/dL (0.2-1.0); TOTAL PROTEIN 7.2 g/dL (6.4-8.2)
--- NOTE | 2020-08-17 16:18 | EKG ---
[facility] [address] [place] [address] Test Date: 2020-08-17 Test Time: 14:59:30 Pat Name: SIMIN MARTÍNEZ Department: Room: Gender: F Shock Absorption Floor Layer: : 1965 Requested By: JOS GIPSON Order Number: [id number] Reading MD: Measurements Intervals [place] Rate: 102 P: 46 ND: 160 QRS: 11 QRSD: 66 T: 14 QT: 368 QTc: 484 Interpretive Statements SINUS TACHYCARDIA OTHERWISE NORMAL ECG RI6.01 No previous ECG available for comparison
[2020-08-17 16:54] LABS: BILIRUBIN,URINE NEGATIVE (NEG); CLARITY,URINE CLEAR; COLOR,URINE YELLOW; NITRITE,URINE NEGATIVE (NEG); PROTEIN,URINE NEGATIVE (NEG-TRACE); UROBILINOGEN,URINE 0.2 mg/dL (0.2 mg/dL)
[2020-08-17 17:04] LABS: BACTERIA,URINE MODERATE /HPF (0-FEW); RBC,URINE 0 /HPF (0-2)
[2020-08-17] MEDS ORDERED: CLIN150C15 PO (17:11)
[2020-08-17 17:29] VITALS: BP 170/79
== END 2020-08-17 17:40 | disposition home or self-care (01) ==
LOC: ER 14:00
DX: L03.115 Cellulitis of right lower limb (principal); R07.89 Other chest pain; R06.02 Shortness of breath; J45.909 Unspecified asthma, uncomplicated; E11.9 Type 2 diabetes mellitus without complications; E78.00 Pure hypercholesterolemia, unspecified; I10 Essential (primary) hypertension; Z90.710 Acquired absence of both cervix and uterus; Z88.0 Allergy status to penicillin; Z88.4 Allergy status to anesthetic agent; Z88.5 Allergy status to narcotic agent; Z88.6 Allergy status to analgesic agent; Z91.013 Allergy to seafood
CPT/HCPCS: 36415; 71045; 80053; 81001; 82553; 83690; 83735; 83880; 84484; 85025; 85379; 87086; 93005; 93971; 99285-25